=== PATIENT | male | born 1970 | race Caucasian/White ===

== ENCOUNTER 2018-12-24 12:22 | Emergency (ER) | payer SELFPAY ==
[~2018-12-24] VITALS: Ht 170.2 cm; Wt 102.0 kg
[2018-12-24 12:39] VITALS: BP 128/72; PULSE 88; RESP 18; Ht 170.2 cm; Wt 102.0 kg
[2018-12-24] MEDS ORDERED: ONDANSETRON (ODT) 4 MG TAB ODT STA (13:32)
[2018-12-24] MEDS ORDERED: HYDROCODONE/APAP (5/325) TAB PO ONE (14:00)
[2018-12-24] MEDS ORDERED: NAPR-985 PO (14:39)
[2018-12-24] MEDS ORDERED: HYDR-4011 PO (14:39)
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
== END 2018-12-24 16:04 | disposition home or self-care (01) ==
LOC: FTE 12:22
DX: M54.2 Cervicalgia (principal); R68.84 Jaw pain
CPT/HCPCS: 70450; 70486